=== PATIENT | female | born 1965 | race American Indian/Alaskan Native ===

== ENCOUNTER 2017-03-01 08:56 | Day surgery (SDC) | payer BC ==
[~2017-03-01 08:56] MED LIST: ANCEF/STERILE WATER 2 GM/20 ML IV NR; MARCAINE 0.25% INFILTRATI ONE; NACL 0.9% IR ONE; XYLOCAINE 1% 20 mL INFILTRATI ONE
[2017-03-01] MEDS ORDERED: VERSED IV NR (09:00)
[2017-03-01] MEDS ORDERED: PEPCID PO NR (09:00)
[2017-03-01] MEDS ORDERED: NACL 0.9% 1000 ML 1,000 ML IV SCH (09:00)
[2017-03-01] MEDS ORDERED: XYLOCAINE MPF 2% ONE (09:04)
[2017-03-01] MEDS ORDERED: DIPRIVAN 10 MG/ML IV ONE (09:04)
[2017-03-01] MEDS ORDERED: SUBLIMAZE ONE ×2 (09:04→11:29)
[2017-03-01] MEDS ORDERED: XYLOCAINE 1% 20 mL ONE (09:20)
[2017-03-01] MEDS ORDERED: MARCAINE 0.25% INFILTRATI ONE (09:20)
--- NOTE | 2017-03-01 09:47 | Anesthesia Consultation ---
Anesthesia Consult and Med Hx Date of service: 03/01/17 - Airway Anesthetic Teeth Evaluation: Good ROM Head & Neck: Adequate Mental/Hyoid Distance: Adequate Mallampati Class: Class I Intubation Access Assessment: Good - Pulmonary Exam CTA: Yes - Cardiac Exam Cardiac Exam: RRR - Pre-Operative Health Status ASA Pre-Surgery Classification: ASA3 Proposed Anesthetic Plan: General - Pulmonary Hx Smoking: No Hx Asthma: Yes (uses inhaler 2 puffs 2x per day, last used last night) COPD: No Hx Sleep Apnea: Yes (DX SLEEP APNEA WITH CPAP USE.) - Cardiovascular System Hx Hypertension: Yes ( DR. OCHOA - PCP) Hx Coronary Artery Disease: No Hx Heart Attack/AMI: No Hx Angina: No - Central Nervous System Hx Seizures: No CVA: No Hx Psychiatric Problems: No - Gastrointestinal Hx Gastroesophageal Reflux Disease: Yes (severe took her dexilent) - Endocrine Hx Renal Disease: No Hx Liver Disease: No Hx Non-Insulin Dependent Diabetes: Yes - Hematic Hx Anemia: No - Other Systems Hx Alcohol Use: No Hx Substance Use: No Hx Cancer: No Hx Obesity: Yes (BMI >50)
--- NOTE | 2017-03-01 09:48 | Anesthesia Day of Surgery ---
Anesthesia Day of Surgery - Day of Surgery Patient Examined: Yes Patient H&P Reviewed: Yes Patient is NPO: Yes Beta Blockers: Yes
[2017-03-01] MEDS ORDERED: DECADRON ONE (10:46)
[2017-03-01] MEDS ORDERED: ZOFRAN ONE (10:46)
--- NOTE | 2017-03-01 12:11 | Short Stay Summary ---
Short Stay Documentation Date of service: 03/01/17 - History H&P: obtained from office - Allergies and Medications Current Medications: Allergies blueberry Adverse Reaction (Verified 07/17/14 13:15) HIVES AND ITCHING tramadol HCl [From Ultram] Adverse Reaction (Verified 07/17/14 13:15) HIVES AND ITCHING blackberry Adverse Reaction (Uncoded 07/17/14 13:15) HIVES AND ITCHING Home Medications Medication Instructions Recorded Confirmed Last Taken Type Budesoni/Formotero 160-4.5(Nf) 2 puff IH BID 07/17/14 02/23/17 02/04/15 07:10 History [Symbicort 160-4.5 (Nf)] Metoprolol Xl [Metoprolol 50 mg PO QDAY 07/17/14 02/23/17 02/04/15 07:10 History SUCCINATE ER TAB] clonazePAM 2 mg PO QHS 07/17/14 02/23/17 02/03/15 23:00 History Losartan/Hydrochlorothiazide 1 each PO QDAY 12/13/16 02/23/17 Unknown History [Losartan-Hctz 50-12.5 mg Tab] Omeprazole Magnesium [PriLOSEC Otc] 20 mg PO QDAY PRN 12/13/16 02/23/17 Unknown History glipiZIDE [Glucotrol] 10 mg PO BID 12/13/16 02/23/17 Unknown History Meloxicam [Mobic] 15 mg PO DAILY 02/23/17 02/23/17 02/23/17 History metFORMIN XR [Glucophage XR] 500 mg PO QDAY 02/23/17 02/23/17 Unknown History Ibuprofen [Motrin 800 MG tab] 800 mg PO Q8HR PRN #30 tablet 03/01/17 Unknown Rx Active Medications Cefazolin Sodium (Ancef/Sterile Water 2 Gm/20 Ml) 2 gm IV PREOP NR Stop: 03/01/17 23:59 Famotidine (Pepcid) 20 mg PO PREOP NR Stop: 03/01/17 21:00 Last Admin: 03/01/17 10:07 Dose: 20 mg Sodium Chloride (Nacl 0.9% 1000 Ml) 1,000 mls @ 75 mls/hr IV DIRECT ERAN Last Admin: 03/01/17 10:11 Dose: 75 mls/hr Midazolam HCl (Versed) 2 mg IV PREOP NR Stop: 03/01/17 23:59 Last Admin: 03/01/17 10:31 Dose: 2 mg - Brief post op/procedure progress note Date of procedure: 03/01/17 Pre-op diagnosis: Right bloody nipple discharge Post-op diagnosis: same Procedure: Right nipple terminal duct excisional biopsy Anesthesia: GETA Findings: Bloody nipple discharge with terminal duct excisional biopsy Surgeon: HUGO STONE Estimated blood loss: minimal Pathology: list (right nipple terminal duct excisional biopsy) Specimen disposition: to lab Condition: stable - Disposition Condition at discharge: Good Disposition: DC-01 TO HOME OR SELFCARE Short Stay Discharge Plan Activity: other (no heavy lifting) Diet: regular Wound: other (keep incision clean and dry; may shower in 24 hours; no baths, pools or lakes; do not rub or scrub incision) Follow up with: DAMIAN OCHOA MD [Primary Care Provider] - 7 Days HUGO STONE MD [Staff Physician] - 7 Days Prescriptions: Ibuprofen [Motrin 800 MG tab] 800 mg PO Q8HR PRN #30 tablet PRN Reason: Pain
--- NOTE | 2017-03-01 12:19 | Operative Report ---
Operative Report Operative Report: Date of Service: March 01, 2017 Preoperative diagnosis: Right bloody nipple discharge Postoperative diagnosis: Same Procedure: Right nipple terminal duct excisional biopsy Surgeon: Marcie Granda M.D. Anesthesia: Gen. Findings: Right nipple bloody nipple discharge noted at the 10-11 o'clock position of the right nipple terminal duct excisional biopsy performed Complications: None Estimated blood loss: Minimal Disposition: PACU in good condition Indications for operative procedure: This is a 51-year-old -[place] lady with right nipple spontaneous bloody nipple discharge. Ductogram was performed with findings of obstruction 2 cm posterior to the nipple and recommendations for terminal duct excisional biopsy. Patient wished to proceed with the above procedure. Procedure in detail: The patient was taken to the operating room and was laid supine. Gen. anesthesia was administered. The right breast was prepped and draped in the normal as operative fashion. Timeout was performed. Bloody discharge was noted upon light palpation at the 10-11 o'clock position of the nipple. A lacrimal probe was inserted into bleeding duct and a lateral periareolar incision was made with a 15 blade knife with dissection taken down to the subcutaneous tissues. First began with dissection of the breast tissue posterior to the nipple taken down posteriorly to 4 cm. Lacrimal probe was identified with the terminal duct identified as well. Tonsil was then used to encircle the breast tissue superior and inferiorly with dissection taken down posteriorly by 4 cm. The area of concern encompassing the concerning bleeding terminal duct was excised using the bovie cautery and terminal duct marked. Specimen was then sent to pathology. Hemostasis was obtained. Breast cavity was anesthetized with 1% lidocaine mixed with quarter percent Marcaine. The subcutaneous tissues were approximated and closed using interrupted 3-0 Vicryl and the skin brought together and closed using a 4-0 Monocryl and skin affix. She tolerated surgery very well and was awakened from anesthesia without any complications and transported to PACU in good condition.
[2017-03-01 13:08] VITALS: BP 138/82
== END 2017-03-01 13:37 | disposition home or self-care (01) ==
LOC: OR 08:56
PROVIDERS: ATTEND Surgery
DX: N64.52 Nipple discharge (principal); E11.9 Type 2 diabetes mellitus without complications; E78.00 Pure hypercholesterolemia, unspecified; J45.909 Unspecified asthma, uncomplicated; G47.33 Obstructive sleep apnea (adult) (pediatric); I10 Essential (primary) hypertension; K21.9 Gastro-esophageal reflux disease without esophagitis; E66.9 Obesity, unspecified; Z68.43 Body mass index [BMI] 50.0-59.9, adult; Z91.018 Allergy to other foods; Z88.5 Allergy status to narcotic agent; Z79.899 Other long term (current) drug therapy; Z79.84 Long term (current) use of oral hypoglycemic drugs; Z98.890 Other specified postprocedural states; Z80.3 Family history of malignant neoplasm of breast
CPT/HCPCS: 19120; 36415; 81025; 82962; 84132; 88307; 88341; 88342; J0690; J1100; J2250; J2405; J2704; J3010; J7030

== ENCOUNTER 2017-06-27 08:50 | Outpatient (CLI) | payer BC ==
--- NOTE | 2017-06-27 10:12 | Mammography Report ---
RIGHT DIGITAL DIAGNOSTIC MAMMOGRAM with CAD: 06/27/17 08:50:00 CLINICAL: Followup after surgical excision of a benign retroareolar intraductal papilloma 03/02/17. COMPARISON:10/21/16 [facility] FINDINGS: The breast is heterogeneously dense, which may obscure small masses. Mild periareolar skin thickening and mild retroareolar surgical scar. No mass, architectural distortion or suspicious calcifications. IMPRESSION: Negative Mammogram. BI-RADS CATEGORY: 2 - - Benign RECOMMENDATION: Return to routine mammographic screening. ACR BI-RADS MAMMOGRAPHIC CODES: 0 = Needs additional imaging evaluation; 1 = Negative; 2 = Benign; 3 = Probably benign; 4 = Suspicious; 5 = Malignant; 6 = Known biopsy-proven malignancy COMMENT: 1. Dense breast tissue, i.e., adenosis, fibrocystic changes, etc., may obscure an underlying neoplasm. 2. Approximately 10% of cancers are not detected with mammography. 3. A negative mammography report should not delay biopsy if a clinically suspicious mass is present. COMMENT: Patient follow-up letters are generated via our [employer] application.
== END 2017-06-27 08:51 | disposition home or self-care (01) ==
LOC: SPVWC 08:50
PROVIDERS: ATTEND Surgery
DX: N60.81 Other benign mammary dysplasias of right breast (principal); N64.52 Nipple discharge
CPT/HCPCS: G0206-RT

== ENCOUNTER 2017-11-07 13:25 | Outpatient (CLI) | payer BC ==
--- NOTE | 2017-11-07 14:17 | Mammography Report ---
BILATERAL DIGITAL SCREENING MAMMOGRAM with CAD : 11/07/17 13:25:00 CLINICAL: Routine screening.Status post excision of a benign right intraductal papilloma. COMPARISON:06/27/17 right mammogram and 10/21/16 lateral mammogram. FINDINGS: The breasts are heterogeneously dense, which may obscure small masses.A few bilateral calcifications with benign morphology. No mass, architectural distortion or suspicious calcifications. IMPRESSION: No mammographic evidence of malignancy. BI-RADS CATEGORY: 2 -- Benign RECOMMENDATION: Routine mammographic screening in one year. COMMENT: Patient follow-up letters are generated by our [employer] application.
== END 2017-11-07 13:26 | disposition home or self-care (01) ==
LOC: SPVWC 13:25
PROVIDERS: ATTEND Surgery
DX: Z12.31 Encounter for screening mammogram for malignant neoplasm of breast (principal); Z98.890 Other specified postprocedural states
CPT/HCPCS: 77067

== ENCOUNTER → 2018-03-13 | Outpatient (CLI) | payer BC ==
--- NOTE | 2018-03-13 15:22 | Ultrasound Report ---
RIGHT DIGITAL DIAGNOSTIC MAMMOGRAM with CAD and RIGHT BREAST ULTRASOUND: 03/13/18 10:16:00 CLINICAL: Palpable masses of the upper-inner quadrant pain history of intraductal papilloma with atypical ductal hyperplasia. A right surgical excision was performed on 02/05/15. A breast MRI was attempted but could not be performed because of body habitus. COMPARISON:11/07/17 bilateral mammogram, 06/27/17 right mammogram and 10/21/16 bilateral mammogram. FINDINGS: The breast is heterogeneously dense with a stable fibroglandular pattern. An oval circumscribed asymmetry measures 1.6 cm on the lateral view and correlates with a palpable marker that is closest to the nipple at 1 o'clock. 2 additional palpable markers at 1 o'clock with no definite mammographic correlates. No architectural distortion or suspicious calcifications. Ultrasound of the upper inner right breast was performed and demonstrated numerous solid irregular hypoechoic masses. At least five measurable masses extend from 3 cm from the nipple to 14 cm from the nipple. The largest is at 11 cm from the nipple and measures 2.6 x 2.2 x 1.3 cm. The smallest is at 14 cm from the nipple and measures 1.1 x 1.0 x 0.5 cm. In addition to these masses, there are numerous branching dilated hypoechoic ducts in the same orientation as the solid masses. IMPRESSION: Numerous suspicious breast masses at 1 o'clock extending from 3 cm from the nipple to 14 cm from the nipple. Recommend ultrasound-guided needle biopsy of the largest and most suspicious mass. BI-RADS CATEGORY: 4--Suspicious ACR BI-RADS MAMMOGRAPHIC CODES: 0 = Needs additional imaging evaluation; 1 = Negative; 2 = Benign; 3 = Probably benign; 4 = Suspicious; 5 = Malignant; 6 = Known biopsy-proven malignancy COMMENT: 1. Dense breast tissue, i.e., adenosis, fibrocystic changes, etc., may obscure an underlying neoplasm. 2. Approximately 10% of cancers are not detected with mammography. 3. A negative mammography report should not delay biopsy if a clinically suspicious mass is present. COMMENT: Patient follow-up letters are generated by our [email or web address] application.
== END | disposition home or self-care (01) ==
LOC: SPVWC 10:16
PROVIDERS: ATTEND Surgery
DX: I10 Essential (primary) hypertension (principal); E78.00 Pure hypercholesterolemia, unspecified; K21.9 Gastro-esophageal reflux disease without esophagitis; E66.9 Obesity, unspecified; E11.9 Type 2 diabetes mellitus without complications; J45.909 Unspecified asthma, uncomplicated; Z91.018 Allergy to other foods; Z88.6 Allergy status to analgesic agent; R92.8 Other abnormal and inconclusive findings on diagnostic imaging of breast

== ENCOUNTER 2018-03-16 15:11 | Outpatient (CLI) | payer BC, OTHER | END 2018-03-16 15:12 | disposition home or self-care (01) | LOC: LABHHL 15:11 | PROVIDERS: ATTEND Surgery | DX: N63.11 Unspecified lump in the right breast, upper outer quadrant (principal); I10 Essential (primary) hypertension; E78.00 Pure hypercholesterolemia, unspecified; E66.9 Obesity, unspecified; J45.909 Unspecified asthma, uncomplicated; E11.9 Type 2 diabetes mellitus without complications; K21.9 Gastro-esophageal reflux disease without esophagitis; Z91.018 Allergy to other foods; Z88.6 Allergy status to analgesic agent | CPT/HCPCS: 88305; 88341; 88342; 88361 ==

== ENCOUNTER 2018-03-29 08:05 | Outpatient (CLI) | payer BC ==
--- NOTE | 2018-03-29 14:04 | PET Report ---
PET/CT:03/29/18 08:05:00 CLINICAL: Newly diagnosed right breast cancer. RADIOPHARMACEUTICAL: 12.486mCi F18-FDG. COMPARISON: Right digital diagnostic mammogram and right breast ultrasound 03/13/18 TECHNIQUE- Following intravenous injection of F-18 FDG and an approximately 60 minute uptake period, CT and PET images from the mid skull to the upper thighs were acquired with the patient in the fasted state. No contrast was administered. The CT protocol used for this PET CT study is designed for attenuation correction and anatomic localization of abnormalities. This die designer apprentice CT is not desired to produce and cannot replace, ygvgs-zq-mdd-art diagnostic CT scans with specific imaging protocols for different body parts and indications. Plasma glucose at the time of this test: 111g/dl. The standardized uptake values (SUV) are normalized to patient body weight and indicate the highest activity concentration (SUV max) in a given disease site. FINDINGS: Brain--Physiologic FDG uptake in the visualized regions of the brain. Neck--Physiologic FDG uptake in mucosal structures. No mass or lymphadenopathy. Chest--Physiologic FDG uptake in mediastinal blood pool and myocardium. Multifocal FDG uptake in the upper inner right breast with SUV 5.2 correlates with previously described masses identified by ultrasound. The abnormal FDG uptake spans at least 6 cm. Discrete masses are not identified on the CT portion of the exam. Lungs--No abnormal uptake. No pulmonary nodule or mass. Pleura/pericardium--No abnormal uptake. Thoracic nodes--No abnormal uptake in no lymphadenopathy. Hepatobiliary--No abnormal uptake. Liver background SUV mean, as a reference for comparing FDG studies, is 4.6 . No liver mass. Spleen--No abnormal uptake. Pancreas--No abnormal uptake. Adrenal Glands--No abnormal uptake. Kidneys/Ureters/Bladder--No abnormal uptake. Abdominopelvic Nodes--No abnormal uptake. Bowel/Peritoneum/Mesentery--No abnormal uptake. Pelvic organs--No abnormal uptake. Bones/Soft Tissues--No abnormal uptake and no suspicious bone lesion. IMPRESSION- 1. FDG avid breast cancer involving the upper inner quadrant of the right breast. 2. No evidence of mary jo, pulmonary, hepatic or skeletal metastasis..
== END 2018-03-29 08:06 | disposition home or self-care (01) ==
LOC: PET 08:05
PROVIDERS: ATTEND Surgery
DX: C50.411 Malignant neoplasm of upper-outer quadrant of right female breast (principal); I10 Essential (primary) hypertension; E11.9 Type 2 diabetes mellitus without complications; E78.00 Pure hypercholesterolemia, unspecified; K21.9 Gastro-esophageal reflux disease without esophagitis; J45.909 Unspecified asthma, uncomplicated; E66.9 Obesity, unspecified
CPT/HCPCS: 78815; A9552

== ENCOUNTER 2018-08-21 10:43 | Day surgery (SDC) | payer BC ==
[2018-08-21] MEDS ORDERED: NACL 0.9% 1000 ML 1,000 ML IV SCH (11:00)
[2018-08-21] MEDS ORDERED: DILAUDID IV PRN (11:56)
[2018-08-21] MEDS ORDERED: TRANSDERM-SCOP TD NR (12:00)
[2018-08-21] MEDS ORDERED: VERSED IV NR (12:00)
--- NOTE | 2018-08-21 12:00 | Anesthesia Day of Surgery ---
Anesthesia Day of Surgery - Day of Surgery Patient Examined: Yes Patient H&P Reviewed: Yes Patient is NPO: Yes Beta Blockers: Yes
--- NOTE | 2018-08-21 12:00 | Anesthesia Consultation ---
Anesthesia Consult and Med Hx - Airway Anesthetic Teeth Evaluation: Good ROM Head & Neck: Adequate Mental/Hyoid Distance: Adequate Mallampati Class: Class III Intubation Access Assessment: Possibly Difficult - Pulmonary Exam CTA: Yes - Cardiac Exam Cardiac Exam: RRR - Pre-Operative Health Status ASA Pre-Surgery Classification: ASA3 Proposed Anesthetic Plan: General - Pulmonary Hx Smoking: No Hx Asthma: Yes (DAILY INHALERS) Hx Respiratory Symptoms: No Home Oxygen Therapy: No Hx Sleep Apnea: Yes (DX SLEEP APNEA WITH CPAP USE.) - Cardiovascular System Hx Hypertension: Yes (took metoprolol today. Last dose losartan 08/20/18) Hx Heart Attack/AMI: No Hx Percutaneous Transluminal Coronary Angioplasty (PTCA): No - Central Nervous System Hx Seizures: No CVA: No - Gastrointestinal Hx Gastroesophageal Reflux Disease: Yes (well controlled; asymptomatic today) - Endocrine Hx Renal Disease: No Hx Liver Disease: No Hx Non-Insulin Dependent Diabetes: Yes Hx Thyroid Disease: No - Other Systems Hx Alcohol Use: No Hx Substance Use: No Hx Cancer: Yes Hx Obesity: Yes - Additional Comments Anesthesia Medical History Comments: Hx PONV which did not occur with scop patch last anesthetic.
[2018-08-21] MEDS ORDERED: XYLOCAINE 1% 20 mL ONE (12:14)
[2018-08-21] MEDS ORDERED: HEPARIN 10,000 UNITS/10 ML ONE (12:14)
[2018-08-21] MEDS ORDERED: MARCAINE-EPI 0.25%-1:200,000 INFILTRATI ONE (12:14)
[2018-08-21] MEDS ORDERED: NACL 0.9% 100 ML ONE (12:15)
[2018-08-21] MEDS ORDERED: MARCAINE 0.25% INFILTRATI ONE ×2 (12:16→12:45)
[2018-08-21] MEDS ORDERED: ANCEF/STERILE WATER 2 GM/20 ML IV NR (12:20)
[2018-08-21] MEDS ORDERED: ceFAZolin 2 GM in NACL 0.9% 100 ML IV ONE (12:20)
[2018-08-21] MEDS ORDERED: ZOFRAN ONE (12:28)
[2018-08-21] MEDS ORDERED: SUBLIMAZE ONE ×2 (12:28→13:15)
[2018-08-21] MEDS ORDERED: DIPRIVAN 10 MG/ML IV ONE ×2 (12:28→12:32)
[2018-08-21] MEDS ORDERED: DECADRON ONE (12:28)
[2018-08-21] MEDS ORDERED: XYLOCAINE MPF 2% ONE (12:29)
[2018-08-21] MEDS ORDERED: NACL 0.9% IR ONE (12:45)
[2018-08-21] MEDS ORDERED: HEPARIN 10,000 UNITS/10 ML IV ONE ×2 (12:45)
[2018-08-21] MEDS ORDERED: XYLOCAINE 1% MPF 5 mL INFILTRATI ONE (12:45)
--- NOTE | 2018-08-21 14:02 | Short Stay Summary ---
Short Stay Documentation Date of service: 08/21/18 - History Principal diagnosis: right breast cancer H&P: obtained from office - Allergies and Medications Current Medications: Allergies blueberry Adverse Reaction (Verified 06/06/18 11:13) HIVES AND ITCHING [facility] Adverse Reaction (Verified 06/06/18 11:13) HIVES AND ITCHING blackberry Adverse Reaction (Uncoded 05/02/18 16:12) HIVES AND ITCHING Home Medications Medication Instructions Recorded Confirmed Last Taken Type Budesoni/Formotero 160-4.5(Nf) 2 puff IH BID 07/17/14 08/21/18 08/21/18 02:00 History [Symbicort 160-4.5 (Nf)] Ibuprofen [Motrin 800 MG tab] 800 mg PO Q8HR PRN #30 tablet 03/01/17 08/21/18 08/14/18 Rx Cholecalciferol (Vitamin D3) 50,000 units PO QWEEK 05/02/18 08/21/18 08/19/18 History [Vitamin D3] Empagliflozin [Jardiance] 25 mg PO DAILY 05/02/18 08/21/18 08/20/18 History Ipratropium/Albuter (Nf) 2 puff IH QID 05/02/18 08/21/18 07/04/18 History [Combivent (Nf)] Levocetirizine Dihydrochloride 5 mg PO DAILY PRN 05/02/18 08/21/18 08/06/18 History [Xyzal] Losartan Potassium 50 mg PO DAILY 05/02/18 08/21/18 08/20/18 09:00 History Melatonin/Pyridoxine [Melatonin 5 5 mg PO QHS 05/02/18 08/21/18 08/20/18 21:00 History mg Tablet] Metoprolol Succinate [Toprol Xl] 150 mg PO DAILY 05/02/18 08/21/18 08/21/18 02:00 History Omeprazole 40 mg PO DAILY 05/02/18 08/21/18 08/21/18 02:00 History diphenhydrAMINE [Benadryl CAP] 25 mg PO Q6HR PRN 05/02/18 08/21/18 06/05/18 History glipiZIDE [Glipizide] 5 mg PO BID 05/02/18 08/21/18 08/20/18 History predniSONE [Deltasone] 20 mg PO DAILY PRN 05/02/18 08/21/18 07/03/18 History HYDROcodone/APAP 7.5-325 [Moran 1 tab PO Q4HR PRN 06/07/18 08/14/18 06/06/18 22:00 History 7.5-325 mg TAB] Methocarbamol [Robaxin TAB] 1 tab PO Q6HR PRN 06/07/18 08/21/18 08/07/18 History Active Medications Cefazolin Sodium (Ancef/Sterile Water 2 Gm/20 Ml) 2 gm IV PREOP NR Stop: 08/21/18 23:59 Hydromorphone HCl (Dilaudid) 0.5 mg IV Q10MIN PRN PRN Reason: Pain , Severe (7-10) Stop: 08/21/18 23:00 Sodium Chloride (Nacl 0.9% 1000 Ml) 1,000 mls @ 75 mls/hr IV DIRECT ERAN Last Admin: 08/21/18 12:27 Dose: 75 mls/hr Documented by: Midazolam HCl (Versed) 2 mg IV PREOP NR Stop: 08/21/18 23:59 Last Admin: 08/21/18 12:26 Dose: 2 mg Documented by: Scopolamine (Transderm-Scop) 1 each TD PREOP NR Stop: 08/21/18 23:00 Last Admin: 08/21/18 12:26 Dose: 1 each Documented by: - Brief post op/procedure progress note Date of procedure: 08/21/18 Pre-op diagnosis: right breast cancer Post-op diagnosis: same Procedure: insertion of left internal jugular port with ultrasound guidance, fluoroscopy Anesthesia: GETA, local Findings: good placement of port on post op CXR without PTX Surgeon: JAKE WARE Estimated blood loss: minimal Pathology: none Condition: stable - Hospital course Hospital course: Patient was observed in PACU and discharged to home in stable condition when criteria was met. - Disposition Condition at discharge: Good Short Stay Discharge Plan Activity: no restrictions Diet: regular Wound: open to air Additional Instructions: see printed discharge instructions Follow up with: LALI OCHOA MD [Primary Care Provider] - 7 Days JAKE WARE DO [Staff Physician] - 14 Days
[2018-08-21] MEDS ORDERED: PERCOCET 5/325 PO PRN (14:40)
--- NOTE | 2018-08-21 14:41 | Fluoroscopy Report ---
AP CHEST: HISTORY: Breast cancer, Lggbnw-w-Hshz insertion A left IJ Pxsusr-p-Yyvy has been inserted which terminates near the cavoatrial junction. AP view of the chest demonstrates a normal mediastinal and cardiac contour with clear lungs and normal bony and soft tissue structures. Right breast tissue ct technician is noted. IMPRESSION: Left IJ Lplybl-v-Vqmy placement as described. No pneumothorax.
[2018-08-21 15:29] VITALS: BP 125/61
--- NOTE | 2018-08-21 15:56 | Post Anesthesia Evaluation ---
- Post Anesthesia Evaluation Patient Participated: Yes Airway Patent: Yes Stable Respiratory Function: Yes Nausea/Vomiting: No Temp > 96.8F: Yes Pain Manageable: Yes Adequeate Hydration: Yes Anesthesia Complications: No
--- NOTE | 2018-08-21 16:43 | Operative Report ---
Operative Report Operative Report: Date of procedure: 08/21/18 Pre-op diagnosis: right breast cancer Post-op diagnosis: same Procedure: insertion of left internal jugular port with ultrasound guidance, fluoroscopy Anesthesia: GETA, local Findings: good placement of port on post op CXR without PTX Surgeon: JAKE WARE Estimated blood loss: minimal Pathology: none Condition: stable Procedure in detail: The patient was identified in the preoperative area, taken back to operating room, placed on operating table in supine position. After anesthesia was induced both arms were tucked and upper chest and neck were prepped and draped in usual sterile fashion. A timeout was performed. The was placed in Trendelenburg position. Local anesthetic was infiltrated into the skin at the intended puncture site. The left subclavian vein was visualized on ultrasound and one attempt was made at access. The vein was particularly deep due to the patient's body habitus and could not be accessed safely. The left internal jugular vein was identified on ultrasound and was accessed on the first stick. There was return of dark red, nonpulsatile blood. A wire was threaded under fluoroscopy however it could not be guided into the right atrium. The wire was removed. Another attempt was made to access the left internal jugular vein using ultrasound guidance. The vein was accessed on the first stick. There was return of dark red, nonpulsatile blood. A glidewire was threaded under fluoroscopy without resistance and positioning confirmed. The needle was then removed. Using a 15 blade, an incision was made in the left upper chest and dissection carried down through the skin and subcutaneous tissue using Bovie electrocautery. Hemostasis was achieved along the way. A pocket for the port was then created bluntly and with electrocautery. The catheter was flushed and tunneled from the pocket to the wire. A breakaway catheter/dilator sheath then inserted over the wire under fluoroscopy, and the wire and dilator removed. The catheter was then inserted through the breakaway catheter which was then remov ed. The catheter sat flush under the skin. Using continuous fluoroscopy, the catheter was pulled back until the tip was visualized in the right atrium. The catheter was then cut to size and the port attached in the usual fashion. The port was then sutured into place to the pre-pectoral fascia using 2-0 Vicryl interrupted sutures. The wound was irrigated and hemostasis ensured. The port was tested with heparinized saline and there was return of blood and it flushed easily. The port was then instilled with 3000 units of heparin. The deep dermal layer was then closed with interrupted 3-0 Vicryl stitches. The skin incisions were closed with 4-0 Monocryl subcuticular stitches and skin glue. Intraoperative chest x-ray did show good positioning of the port, without evidence of pneumothorax. At the end of the case, all sponge, instrument, sharp counts were correct 2. The patient was awoken from anesthesia and taken to PACU in stable condition.
== END 2018-08-21 16:00 | disposition home or self-care (01) ==
LOC: OR 10:43
PROVIDERS: ATTEND Surgery
DX: C50.912 Malignant neoplasm of unspecified site of left female breast (principal); E78.00 Pure hypercholesterolemia, unspecified; I10 Essential (primary) hypertension; G47.30 Sleep apnea, unspecified; K21.9 Gastro-esophageal reflux disease without esophagitis; M17.0 Bilateral primary osteoarthritis of knee; E11.9 Type 2 diabetes mellitus without complications; J45.909 Unspecified asthma, uncomplicated; E66.9 Obesity, unspecified; Z68.42 Body mass index [BMI] 45.0-49.9, adult; Z90.11 Acquired absence of right breast and nipple; Z98.890 Other specified postprocedural states; Z80.3 Family history of malignant neoplasm of breast; Z98.891 History of uterine scar from previous surgery; Z91.018 Allergy to other foods; Z79.899 Other long term (current) drug therapy; Z88.8 Allergy status to other drugs, medicaments and biological substances
CPT/HCPCS: 36561; 77001; 81025; 82962; C1769; C1788; J1100; J1644; J2250; J2405; J2704; J3010; J7030; J0690

== ENCOUNTER 2018-09-11 07:04 | Outpatient (CLI) | payer BC ==
[2018-09-11] MEDS ORDERED: FLUSH HEPARIN IV ONE (08:52)
--- NOTE | 2018-09-11 09:37 | Fluoroscopy Report ---
FLUOROSCOPY PORTAGRAM LEFT History: Nonfunctioning-clotted port, malignant neoplasm of left breast. Findings: 27 fluoroscopic images were obtained during injection of approximately 8 cc of IV contrast through the left Dhzxdf-m-Vtra. There is no evidence for fracture or extravasation of contrast agent. Of note, the distal tip of the Dywazc-u-Prwt is pointing superiorly in the mid SVC. When the Ozatdd-p-Dqdr was placed on 08/21/18, the distal tip of the Kuivlk-w-Evtl pointed inferiorly to terminate near the cavoatrial junction. Impression: The left Ytzoit-o-Llpe is intact. No evidence for fracture or extravasation. The position of the tubing of the Fifauw-z-Zked has changed slightly since it was placed on 08/28/18 as described. The clinical significance of this is unclear.
== END 2018-09-11 07:05 | disposition home or self-care (01) ==
LOC: FLUORO 07:04
PROVIDERS: ATTEND Surgery
DX: C50.412 Malignant neoplasm of upper-outer quadrant of left female breast (principal); E78.00 Pure hypercholesterolemia, unspecified; I10 Essential (primary) hypertension; K21.9 Gastro-esophageal reflux disease without esophagitis; M17.0 Bilateral primary osteoarthritis of knee; E11.9 Type 2 diabetes mellitus without complications; J45.909 Unspecified asthma, uncomplicated; G47.30 Sleep apnea, unspecified; E66.9 Obesity, unspecified; Z68.42 Body mass index [BMI] 45.0-49.9, adult; Z98.890 Other specified postprocedural states; Z80.3 Family history of malignant neoplasm of breast; Z79.899 Other long term (current) drug therapy; Z88.8 Allergy status to other drugs, medicaments and biological substances; Z91.018 Allergy to other foods; Z90.11 Acquired absence of right breast and nipple
CPT/HCPCS: 36598; J1642; Q9967

== ENCOUNTER 2018-09-12 05:59 | Day surgery (SDC) | payer BC ==
[~2018-09-12 05:59] MED LIST changes: -ANCEF/STERILE WATER 2 GM/20 ML IV NR; +LACTATED RINGERS 1,000 ML IV SCH; -MARCAINE 0.25% INFILTRATI ONE; -NACL 0.9% IR ONE; -XYLOCAINE 1% 20 mL INFILTRATI ONE
[2018-09-12] MEDS ORDERED: ANCEF/STERILE WATER 2 GM/20 ML 2 GM/20 ML SYRINGE IV NR (06:00)
[2018-09-12] MEDS ORDERED: VERSED IV NR (06:00)
[2018-09-12] MEDS ORDERED: TRANSDERM-SCOP TD NR (06:00)
[2018-09-12] MEDS ORDERED: ceFAZolin 2 GM in NACL 0.9% 100 ML IV ONE (07:00)
[2018-09-12] MEDS ORDERED: DIPRIVAN 10 MG/ML IV ONE (07:45)
[2018-09-12] MEDS ORDERED: XYLOCAINE MPF 2% ONE (07:45)
[2018-09-12] MEDS ORDERED: SUBLIMAZE ONE (07:45)
[2018-09-12] MEDS ORDERED: XYLOCAINE 1% 20 mL ONE (07:53)
[2018-09-12] MEDS ORDERED: MARCAINE 0.25% INFILTRATI ONE ×3 (07:54→08:31)
[2018-09-12] MEDS ORDERED: HEPARIN 10,000 UNITS/10 ML ONE (07:54)
[2018-09-12] MEDS ORDERED: ZOFRAN ONE (08:16)
[2018-09-12] MEDS ORDERED: HEPARIN IR ONE (08:31)
[2018-09-12] MEDS ORDERED: NACL 0.9% IR ONE ×2 (08:31)
[2018-09-12] MEDS ORDERED: SUBLIMAZE IV PRN (08:44)
--- NOTE | 2018-09-12 08:44 | Anesthesia Day of Surgery ---
Anesthesia Day of Surgery - Day of Surgery Patient Examined: Yes Patient H&P Reviewed: Yes Patient is NPO: Yes
--- NOTE | 2018-09-12 08:44 | Anesthesia Consultation ---
Anesthesia Consult and Med Hx Date of service: 09/12/18 - Airway Anesthetic Teeth Evaluation: Good ROM Head & Neck: Adequate Mental/Hyoid Distance: Adequate Mallampati Class: Class II Intubation Access Assessment: Probably Good - Pulmonary Exam CTA: Yes - Cardiac Exam Cardiac Exam: RRR - Pre-Operative Health Status ASA Pre-Surgery Classification: ASA3 Proposed Anesthetic Plan: General - Pulmonary Hx Smoking: No Hx Asthma: Yes (no recent inhaler use) Hx Respiratory Symptoms: No Hx Sleep Apnea: Yes (compliant with CPAP) - Cardiovascular System Hx Hypertension: Yes Hx Heart Attack/AMI: No Hx Percutaneous Transluminal Coronary Angioplasty (PTCA): No - Central Nervous System Hx Seizures: No CVA: No Hx Psychiatric Problems: No - Gastrointestinal Hx Gastroesophageal Reflux Disease: Yes (well controlled; asymptomatic today) - Endocrine Hx Renal Disease: No Hx Liver Disease: No Hx Non-Insulin Dependent Diabetes: Yes Hx Thyroid Disease: No - Other Systems Hx Alcohol Use: No Hx Substance Use: No Hx Cancer: Yes (has not started chemotherapy) Hx Obesity: Yes - Additional Comments Anesthesia Medical History Comments: Hx PONV however did not occur after last anesthetic with scop patch.
[2018-09-12] MEDS ORDERED: HEPARIN 10,000 UNITS/10 ML IV ONE ×2 (09:05)
[2018-09-12] MEDS ORDERED: NACL P/F VIAL (10 ML) 10 ML ONE ×2 (09:23→09:38)
[2018-09-12] MEDS ORDERED: DECADRON ONE (10:06)
[2018-09-12 10:49] VITALS: BP 146/61
--- NOTE | 2018-09-12 10:54 | Fluoroscopy Report ---
FLUOROSCOPY CENTRAL VENOUS DEVICE EXCHANGE History: Malpositioned Whpdps-s-Xldy. Findings: Single AP view of the chest is presented and compared to 08/21/18. The left Jqspcb-m-Fdky has apparently been exchanged and is in good position with its distal tip terminating in the right atrium. Heart size is within normal limits. The lungs are clear. No pneumothorax. Impression: Left Udexmq-v-Yzip exchange. Unremarkable AP chest.
--- NOTE | 2018-09-12 20:16 | Post Anesthesia Evaluation ---
- Post Anesthesia Evaluation Patient Participated: Yes Airway Patent: Yes Stable Respiratory Function: Yes Nausea/Vomiting: No Temp > 96.8F: Yes Pain Manageable: Yes Adequeate Hydration: Yes Anesthesia Complications: No Block Receding Appropriately: Not Applicable Patient on Ventilator: No
--- NOTE | 2018-09-13 10:27 | Short Stay Summary ---
Short Stay Documentation Date of service: 09/12/18 - History Principal diagnosis: malpositioned port H&P: obtained from office - Allergies and Medications Current Medications: Allergies blueberry Adverse Reaction (Verified 09/11/18 16:12) HIVES AND ITCHING tramadol HCl [From Ultram] Adverse Reaction (Verified 09/11/18 16:12) HIVES AND ITCHING blackberry Adverse Reaction (Uncoded 09/11/18 16:12) HIVES AND ITCHING Home Medications Medication Instructions Recorded Confirmed Last Taken Type Budesoni/Formotero 160-4.5(Nf) 2 puff IH BID 07/17/14 09/12/18 09/12/18 05:00 History [Symbicort 160-4.5 (Nf)] Ibuprofen [Motrin 800 MG tab] 800 mg PO Q8HR PRN #30 tablet 03/01/17 09/12/18 08/14/18 Rx Cholecalciferol (Vitamin D3) 50,000 units PO QWEEK 05/02/18 09/12/18 09/08/18 09:00 History [Vitamin D3] Empagliflozin [Jardiance] 25 mg PO DAILY 05/02/18 09/12/18 09/11/18 09:00 History Ipratropium/Albuter (Nf) 2 puff IH QID 05/02/18 09/12/18 09/12/18 05:00 History [Combivent Inhaler] Losartan Potassium 50 mg PO DAILY 05/02/18 09/12/18 09/11/18 09:00 History Melatonin/Pyridoxine [Melatonin 5 5 mg PO QHS 05/02/18 09/12/18 09/11/18 22:00 History mg Tablet] Metoprolol Succinate [Toprol Xl] 150 mg PO DAILY 05/02/18 09/12/18 09/12/18 05:00 History Omeprazole 40 mg PO DAILY 05/02/18 09/12/18 09/12/18 05:00 History diphenhydrAMINE [Benadryl CAP] 25 mg PO Q6HR PRN 05/02/18 09/12/18 07/06/18 History glipiZIDE [Glipizide] 5 mg PO BID 05/02/18 09/12/18 08/20/18 History predniSONE [Deltasone] 20 mg PO DAILY PRN 05/02/18 09/12/18 07/03/18 History HYDROcodone/APAP 7.5-325 [Silva 1 tab PO Q4HR PRN 06/07/18 09/12/18 07/18/18 History 7.5-325 mg TAB] Methocarbamol [Robaxin TAB] 1 tab PO Q6HR PRN 06/07/18 09/12/18 08/07/18 History - Brief post op/procedure progress note Date of procedure: 09/12/18 Pre-op diagnosis: malpositioned port Post-op diagnosis: same Procedure: replacement of left internal jugular port a cath Anesthesia: GETA, local Findings: Good placement of port on post op CXR without PTX. Good blood return from port and easily flushed at end of case Surgeon: JAKE WARE Estimated blood loss: minimal Pathology: none Condition: stable - Hospital course Hospital course: Pt discharged from PACU in stable condition - Disposition Condition at discharge: Good Disposition: DC-01 TO HOME OR SELFCARE Short Stay Discharge Plan Activity: no restrictions Diet: regular Wound: open to air Follow up with: LALI OCHOA MD [Primary Care Provider] - 7 Days Forms: Outpatient [facility] Inst.
--- NOTE | 2018-09-13 13:05 | Operative Report ---
PREOPERATIVE DIAGNOSIS: Malpositioned left-sided Port-A-Cath. POSTOPERATIVE DIAGNOSIS: Malpositioned left-sided Port-A-Cath. PROCEDURE PERFORMED: Replacement of left-sided Port-A-Cath. SURGEON: Monique Cary DO ANESTHESIA: General endotracheal anesthesia, local. ESTIMATED BLOOD LOSS: Minimal. PATHOLOGY: None CONDITION: Stable. HISTORY OF PRESENT ILLNESS AND INDICATION: The patient is a 53-year-old female with breast cancer who had a left internal jugular port placed with ultrasound guidance on 08/21/2018. The patient presented for chemotherapy and blood could not be drawn back from the port; however, did flush appropriately. The port was instilled with Cathflo; however, no blood flow was appreciated and therefore could not be used. The patient was sent for a portogram, which showed that the distal tip of the Port-A-Cath was malpositioned now in the superior vena cava pointed upwards. Upon postop chest x-ray from 08/21/2018 did show good position of the port in the right atrium. Due to the malpositioning of the port, it was recommended that the Port-A-Cath be repositioned. This was discussed with the patient, all risks, benefits, and alternatives to surgery were discussed and all questions were answered. Consent was obtained. PROCEDURE IN DETAIL: The patient was identified in preoperative area and taken back to the operating room and placed on the operative table in supine position. After anesthesia was induced, the left arm was tucked and the left upper chest and neck were prepped and draped in the usual sterile fashion. A timeout was performed. Local anesthetic was infiltrated into the skin at the prior incision site in the left upper chest. The dissection was carried down through the skin and subcutaneous tissue with Bovie electrocautery. The pocket was encountered and was bluntly dissected using a hemostat until the port was visualized. The catheter was disassembled from the Port-A-Cath and clamped with a hemostat. Using fluoroscopy intraoperatively, the catheter was pulled back until it was out of the SVC and a Glidewire was placed through the catheter. The Glidewire was directed downward into the right atrium. The old catheter was removed over the wire with wire visualized at all times. A new 8-Maltese PowerPort kit was opened and flushed appropriately. The new catheter was placed over the wire and using fluoroscopic guidance was advanced until it was seen in the right atrium. The wire was then removed. The catheter was then pulled back slowly until the tip was visualized in the right atrium. The original catheter, which was removed was affixed to the port at 25 cm. This catheter was affixed to the port at 30 cm. The old subcutaneous port was removed and the new port flushed and assembled in the usual fashion. The new port was sutured into place using 2-0 Vicryl suture to the prepectoral fascia. The port was tested and there was good blood flow from the Port-A-Cath. The port flushed easily with heparinized saline. The subcutaneous tissue was then irrigated and hemostasis carefully ensured. The Port-A-Cath was instilled with 3000 units of heparin. The Port-A-Cath was then accessed as per the request of the oncologist. A Plaza needle was inserted through the skin and into the subcutaneous port. Upon doing this, we could not get blood flow from the Port-A-Cath. Therefore, the Port-A-Cath was reexamined and re-flushed with heparinized saline. The positioning of the Port-A-Cath was reconfirmed using fluoroscopy. The tip of the port remained in the right atrium. After the port was flushed with heparinized saline, we were able to get blood flow back. Once again, the port was accessed; however, it was difficult to get blood flow back. This is likely due to the patient's body habitus. The patient's head and chest were elevated and another attempt was made obtaining blood from the port. Now there was good blood flow from the Port-A-Cath. The port was once again flushed with heparinized saline. At this point, the port was accessed under direct visualization using a Plaza needle through the skin. This was tested and there was good blood flow from the catheter. The catheter was flushed with heparinized saline and then instilled with 3000 units of heparin. The subcutaneous tissue was once again irrigated and hemostasis assured. The deep dermal layer was closed in interrupted fashion using 3-0 Vicryl sutures. The skin was closed with 4-0 Monocryl subcuticular stitches and skin glue. A Biopatch was placed around the entry site of the Port-A-Cath into the skin. A 2 x 2 gauze was placed over the incision after it was dry and the entire unit covered with a Tegaderm dressing. At the end of the case, the postop chest x-ray did show good positioning of the port. At the end of the case, all sponge, instrument, sharp counts were correct x 2. The patient was awoken from anesthesia, extubated, and taken to PACU in stable condition. JOB# [id number] EUNICE/PRICE
== END 2018-09-12 06:00 | disposition home or self-care (01) ==
LOC: OR 05:59
PROVIDERS: ATTEND Surgery
DX: T82.49XA Other complication of vascular dialysis catheter, initial encounter (principal); J45.909 Unspecified asthma, uncomplicated; G47.30 Sleep apnea, unspecified; K21.9 Gastro-esophageal reflux disease without esophagitis; M19.90 Unspecified osteoarthritis, unspecified site; E11.9 Type 2 diabetes mellitus without complications; E78.00 Pure hypercholesterolemia, unspecified; I10 Essential (primary) hypertension; E66.9 Obesity, unspecified; Z68.42 Body mass index [BMI] 45.0-49.9, adult; Z80.3 Family history of malignant neoplasm of breast; Z85.3 Personal history of malignant neoplasm of breast; Z90.11 Acquired absence of right breast and nipple; Z79.899 Other long term (current) drug therapy; Z88.8 Allergy status to other drugs, medicaments and biological substances; Z98.890 Other specified postprocedural states; Y83.8 Other surgical procedures as the cause of abnormal reaction of the patient, or of later complication, without mention of misadventure at the time of the procedure; Y92.89 Other specified places as the place of occurrence of the external cause
CPT/HCPCS: 36582; 77001; 81025; 82962; C1769; C1788; J0690; J1100; J1644; J2250; J2405; J2704; J3010; J7040; J7120

== ENCOUNTER 2018-11-20 08:19 | Outpatient (CLI) | payer BC ==
--- NOTE | 2018-11-20 09:30 | Mammography Report ---
LEFT DIGITAL SCREENING MAMMOGRAM with CAD: 11/20/18 08:19:00 CLINICAL: Routine screening. Right breast cancer status post right mastectomy and currently receiving chemotherapy. COMPARISON:11/07/17 FINDINGS: The breast is heterogeneously dense, which may obscure small masses. A few scattered benign calcifications.No mass, architectural distortion or suspicious calcifications. IMPRESSION: No mammographic evidence of malignancy. BI-RADS CATEGORY: 2 -- Benign RECOMMENDATION: Routine screening in one year. ACR BI-RADS MAMMOGRAPHIC CODES: 0 = Needs additional imaging evaluation; 1 = Negative; 2 = Benign; 3 = Probably benign; 4 = Suspicious; 5 = Malignant; 6 = Known biopsy-proven malignancy COMMENT: 1. Dense breast tissue, i.e., adenosis, fibrocystic changes, etc., may obscure an underlying neoplasm. 2. Approximately 10% of cancers are not detected with mammography. 3. A negative mammography report should not delay biopsy if a clinically suspicious mass is present. COMMENT: Patient follow-up letters are generated via our [employer] application.
== END 2018-11-20 08:20 | disposition home or self-care (01) ==
LOC: SPVWC 08:19
PROVIDERS: ATTEND Surgery
DX: Z12.31 Encounter for screening mammogram for malignant neoplasm of breast (principal); E78.00 Pure hypercholesterolemia, unspecified; I10 Essential (primary) hypertension; J45.909 Unspecified asthma, uncomplicated; K21.9 Gastro-esophageal reflux disease without esophagitis; E11.9 Type 2 diabetes mellitus without complications

== ENCOUNTER 2019-02-28 07:28 | Day surgery (SDC) | payer BC ==
[~2019-02-28 07:28] MED LIST changes: +ANCEF/STERILE WATER 2 GM/20 ML 2 GM/20 ML SYRINGE IV NR; -LACTATED RINGERS 1,000 ML IV SCH; +NACL 0.9% IR ONE
[2019-02-28] MEDS ORDERED: LACTATED RINGERS 1,000 ML IV SCH (08:00)
[2019-02-28] MEDS ORDERED: DILAUDID IV PRN (08:27)
[2019-02-28] MEDS ORDERED: ZOFRAN IV PRN (08:27)
[2019-02-28] MEDS ORDERED: SUBLIMAZE IV NR (08:27)
--- NOTE | 2019-02-28 08:29 | Anesthesia Day of Surgery ---
Anesthesia Day of Surgery - Day of Surgery Patient Examined: Yes Patient H&P Reviewed: Yes Patient is NPO: Yes Beta Blockers: Yes
--- NOTE | 2019-02-28 08:30 | Anesthesia Consultation ---
Anesthesia Consult and Med Hx Date of service: 02/28/19 - Airway Anesthetic Teeth Evaluation: Good ROM Head & Neck: Adequate Mental/Hyoid Distance: Adequate Mallampati Class: Class II Intubation Access Assessment: Good - Pre-Operative Health Status ASA Pre-Surgery Classification: ASA3 Proposed Anesthetic Plan: General Nerve Block: PEC - Pulmonary Hx Smoking: No Hx Asthma: Yes (no recent inhaler use) Hx Respiratory Symptoms: No Hx Sleep Apnea: Yes - Cardiovascular System Hx Hypertension: Yes (Under regular care of county court judge) - Central Nervous System Hx Neuromuscular Disorder: Yes (restless leg syndrome) Hx Psychiatric Problems: No - Gastrointestinal Hx Gastroesophageal Reflux Disease: Yes (well controlled; asymptomatic today) - Endocrine Hx Non-Insulin Dependent Diabetes: Yes Hx Thyroid Disease: No - Other Systems Hx Cancer: Yes Hx Obesity: Yes - Additional Comments Anesthesia Medical History Comments: PONV
[2019-02-28] MEDS ORDERED: VERSED IV NR (09:00)
[2019-02-28] MEDS ORDERED: NEURONTIN PO NR (09:00)
[2019-02-28] MEDS ORDERED: TRANSDERM-SCOP TD NR (09:00)
[2019-02-28] MEDS ORDERED: MARCAINE-EPI 0.25%-1:200,000 INFILTRATI ONE (09:37)
[2019-02-28] MEDS ORDERED: VERSED ONE (10:20)
[2019-02-28] MEDS ORDERED: DIPRIVAN 10 MG/ML IV ONE (10:23)
[2019-02-28] MEDS ORDERED: SUBLIMAZE ONE ×2 (10:23→10:53)
[2019-02-28] MEDS ORDERED: ZOFRAN ONE (10:25)
[2019-02-28] MEDS ORDERED: DECADRON ONE (10:25)
[2019-02-28] MEDS ORDERED: XYLOCAINE CARDIAC IV ONE (10:26)
[2019-02-28] MEDS ORDERED: XYLOCAINE 1%/ EPI 1:100,000 INFILTRATI ONE ×2 (11:08→11:12)
[2019-02-28] MEDS ORDERED: ANCEF ONE (12:48)
[2019-02-28] MEDS ORDERED: BACITRACIN ONE (12:48)
[2019-02-28] MEDS ORDERED: NACL P/F VIAL (10 ML) 0 ML ONE (12:49)
[2019-02-28] MEDS ORDERED: GENTAMICIN ONE (12:49)
[2019-02-28] MEDS ORDERED: ANCEF IV ONE (12:55)
[2019-02-28] MEDS ORDERED: BACITRACIN IR ONE (12:55)
[2019-02-28] MEDS ORDERED: GENTAMICIN IV ONE (12:55)
[2019-02-28] MEDS ORDERED: NACL 0.9% IR ONE (12:55)
[2019-02-28 15:00] VITALS: BP 134/75
--- NOTE | 2019-03-12 00:03 | Operative Report ---
Operative Report Operative Report: Plastic surgery operative note Preoperative diagnosis Acquired absence of the right breast;History of right breast cancer; Status post Right breast reconstruction with Tissue electrician wiring and flex HD Postoperative Diagnosis: same Procedure: Removal of Right Breast tissue electrician wiring, Excision of Damaged skin, Extensive capsulectomy with excision of seroma capsule and placement of permanent prosthesis. Surgeon: Dr. Tanika King Buttermaker: none Anesthesia: General. EBL: 100cc Indications: This patient is a 54-year-old -[place] female with history of right breast cancer who underwent an immediate right breast reconstruction at the time of her mastectomy. Her postoperative course was complicated by the development of cellulitis as well as a seroma that required an additional trip to the OR for wound closure as well as subsequent drain placement in office. She went on to complete chemotherapy and had arrived at a point where she was optimized and stable for the planned second stage of reconstruction. We planned to remove the tissue electrician wiring and replace it with a permanent silicone prosthesi s and excise the seroma capsule with extensive capsulectomy to reshape the breast, as it had become misshapen and developed skin breakdown where the seroma accumulated. Benefits and risks of this procedure were outlined and discussed at length with the patient and her mother. Informed consent was obtained. Procedure: After review of pertinent history and physical exam findings the patient was brought into the operating room and placed supine on the OR table. After induction of adequate general endotracheal anesthesia, the right breast was prepped and draped in the usual sterile surgical fashion. To begin,1% lidocaine with epinephrine was injected Subcutaneously in the Outlined areas for incision.The skin that had become attenuated due to the presence of the seroma were was excised and the implatn pocket opened up to reveal an intact tissue electrician wiring and viable latissimus dorsi muscle flap inferiorly. Once in the tissue electrician wiring was removed, the pocket was irrigated and we began Capsulectomy with electrocautery Care was taken to avoid over-dissection of the [place] right chest skin flaps to maintain adequate blood supply. As much capsule as could be removed was excised along with all of the remaining seroma capsule. Inferiorly,the inframammary fold was lowered to better match the left breast. We then checked for hemostasis which was achieved with electrocautery. Next we thoroughly irrigated the implant pocket with a triple antibiotic solution. In 19 Armenian Alonzo drain was placed and secured using nylon suture. Once this was finished, we are ready to place our permanent Implant which was a 750 mL smooth round [place] silicone implant. The implant was irrigated with triple antibiotics solution as well, gloves were changed, and it was placed without difficulty into the Implant pocket. We have began a three layered closure using 2-0 Monocryl rFollowed by two layers of Monoderm Quill suture. This was then followed by the application of dermabond, Telfa and a Tegaderm dressing.The patient was then awakened from general anesthesia without difficulty and transferred to the recovery unit in stable condition. There were no complications. Specimens sent included right mastectomy flap skin, capsule and seroma capsule.
== END 2019-02-28 16:10 | disposition home or self-care (01) ==
LOC: OR 07:28
PROVIDERS: ATTEND Plastic Surgery
DX: Z41.1 Encounter for cosmetic surgery (principal); E78.00 Pure hypercholesterolemia, unspecified; I10 Essential (primary) hypertension; J45.909 Unspecified asthma, uncomplicated; E78.5 Hyperlipidemia, unspecified; G47.33 Obstructive sleep apnea (adult) (pediatric); K21.9 Gastro-esophageal reflux disease without esophagitis; E66.9 Obesity, unspecified; M19.90 Unspecified osteoarthritis, unspecified site; E11.9 Type 2 diabetes mellitus without complications; Z80.3 Family history of malignant neoplasm of breast; Z98.890 Other specified postprocedural states; Z90.11 Acquired absence of right breast and nipple; Z90.13 Acquired absence of bilateral breasts and nipples; Z85.3 Personal history of malignant neoplasm of breast; Z88.8 Allergy status to other drugs, medicaments and biological substances; Z79.899 Other long term (current) drug therapy; Z68.41 Body mass index [BMI] 40.0-44.9, adult; Z98.82 Breast implant status
CPT/HCPCS: 19340; 19371; 82962; 88300; 88305; C1789; J0690; J1100; J1580; J2001; J2250; J2405; J2704; J3010; J7120; 88302

== ENCOUNTER 2019-11-27 07:58 | Outpatient (CLI) | payer BC ==
--- NOTE | 2019-11-27 13:11 | Mammography Report ---
DIGITAL DIAGNOSTIC MAMMOGRAM WITH CAD, 11/27/2019 INDICATION: For clip placement immediately after 2 site stereotactic biopsy for calcifications. TECHNIQUE: Digital left mammographic imaging was performed. This examination was interpreted with the benefit of Computer-aided Detection analysis. COMPARISON: 11/20/2019 FINDINGS: Breast Density: The breasts are heterogeneously dense, which may obscure small masses. A biopsy clip is identified at 11:30 to 12:00 and correlates with the first stereotactic biopsy site. A bone-shaped biopsy clip is identified more inferior and at 2:00 and correlates with the second osiel reotactic biopsy site. At least some calcifications have been removed at both sites. IMPRESSION: Successful stereotactic biopsy at 2 sites with concordant clip deployment. Follow up recommendation: No recall. Post biopsy imaging. A "normal" or negative report should not discourage follow up or biopsy of a clinically significant f inding. A written summary of these findings will be mailed to the patient. The patient will be entered into a mammography reporting system which will generate a reminder letter for the patient's next appointmen t at the appropriate interval. According to the [employer], yearly mammograms are recommended starting at age 40 and continuing as long as a woman is in good health. Breast MRI is recommended for women with an brian roximately 20-25% or greater lifetime risk of breast cancer, including women with a strong family his tory of breast or ovarian cancer and women who have been treated for Hodgkin's disease. Signer Name: Simon Williamson MD Signed: 11/27/2019 1:07 PM Workstation Name: [id number]
--- NOTE | 2019-11-27 13:40 | Mammography Report ---
LEFT STEREOTACTIC NEEDLE BREAST BIOPSY CAPS ON AT 2 SITES LEFT BREAST INDICATION: Suspicious left breast calcifications at 2 sites. COMPARISON: 03/21/2020 FINDINGS: The procedure was explained to the patient, all questions answered and informed consent was obtained. A timeout was called and the left breast was marked for biopsy. A group of calcifications at 12:00 approximately 15 cm from the nipple was targeted with stereotactic guidance. The skin was prepped with chloro prep. Using 1% lidocaine for skin anesthesia and 2% lidoc kyara with epinephrine for deep anesthesia, 8 gauge mammotome biopsy was performed. Samples were obtai juju around the clock face. Although targeting appeared to be satisfactory, only one distinct calcific ation was identified in the tissue. A marker was placed at the biopsy site. Hemostasis was achieved w ith minimal effort and a sterile dressing was applied. Attention was then given to a more lateral group of upper left breast calcifications which was target ed with stereotactic guidance. The skin was prepped with chloro prep. Using 1% lidocaine for skin ane sthesia and 2% lidocaine with epinephrine for deep anesthesia, 8 gauge mammotome biopsy was performed . Samples were obtained around the clock face and a fuels sales representative calcifications or calcifications w ere obtained. A marker was placed at the biopsy site. Hemostasis was achieved with minimal effort. A sterile dressing was applied. A post procedure mammogram demonstrated removal of at least some of the calcifications at both sites and concordant clip placement at both sites. The patient left the department in good condition and wa s given instructions for wound care and follow-up. IMPRESSION: 1. Successful uncomplicated stereotactic biopsy at 2 sites left breast.. Signer Name: Simon Williamson MD Signed: 11/27/2019 1:35 PM Workstation Name: [id number]
--- NOTE | 2019-11-27 14:11 | Mammography Report ---
LEFT STEREOTACTIC NEEDLE BREAST BIOPSY AT 2 SITES LEFT BREAST INDICATION: Suspicious left breast calcifications at 2 sites. COMPARISON: 03/21/2020 FINDINGS: The procedure was explained to the patient, all questions answered and informed consent was obtained. A timeout was called and the left breast was marked for biopsy. A group of calcifications at 12:00 approximately 15 cm from the nipple was targeted with stereotactic guidance. The skin was prepped with chloro prep. Using 1% lidocaine for skin anesthesia and 2% lidoc kyara with epinephrine for deep anesthesia, 8 gauge mammotome biopsy was performed. Samples were obtai juju around the clock face. Although targeting appeared to be satisfactory, only one distinct calcific ation was identified in the tissue. A marker was placed at the biopsy site. Hemostasis was achieved w ith minimal effort and a sterile dressing was applied. Attention was then given to a more lateral group of upper left breast calcifications which was target ed with stereotactic guidance. The skin was prepped with chloro prep. Using 1% lidocaine for skin ane sthesia and 2% lidocaine with epinephrine for deep anesthesia, 8 gauge mammotome biopsy was performed . Samples were obtained around the clock face and a sales representative door to door calcifications or calcifications w ere obtained. A marker was placed at the biopsy site. Hemostasis was achieved with minimal effort. A sterile dressing was applied. A post procedure mammogram demonstrated removal of at least some of the calcifications at both sites and concordant clip placement at both sites. The patient left the department in good condition and wa s given instructions for wound care and follow-up. IMPRESSION: 1. Successful uncomplicated stereotactic biopsy at 2 sites left breast.. Signer Name: Simon Williamson MD Signed: 11/27/2019 2:07 PM Workstation Name: [id number]
== END 2019-11-27 07:59 | disposition home or self-care (01) ==
LOC: SPVWC 07:58
PROVIDERS: ATTEND Surgery
DX: R92.1 Mammographic calcification found on diagnostic imaging of breast (principal); E78.00 Pure hypercholesterolemia, unspecified; I10 Essential (primary) hypertension; J45.909 Unspecified asthma, uncomplicated; G47.30 Sleep apnea, unspecified; K21.9 Gastro-esophageal reflux disease without esophagitis; E66.9 Obesity, unspecified; Z90.11 Acquired absence of right breast and nipple; M19.90 Unspecified osteoarthritis, unspecified site; E11.9 Type 2 diabetes mellitus without complications; Z88.8 Allergy status to other drugs, medicaments and biological substances; Z79.899 Other long term (current) drug therapy; Z85.3 Personal history of malignant neoplasm of breast; Z80.3 Family history of malignant neoplasm of breast; Z98.890 Other specified postprocedural states
CPT/HCPCS: 19081; 19082; 77065; A4648; 88305

== ENCOUNTER 2020-10-22 07:41 | Day surgery (SDC) | payer MEDICAID ==
--- NOTE | 2020-10-22 07:18 | Anesthesia Day of Surgery ---
Anesthesia Day of Surgery - Day of Surgery Patient Examined: Yes Patient H&P Reviewed: Yes Patient is NPO: Yes
--- NOTE | 2020-10-22 07:18 | Anesthesia Consultation ---
Anesthesia Consult and Med Hx Date of service: 10/22/20 - Airway Anesthetic Teeth Evaluation: Good ROM Head & Neck: Adequate Mental/Hyoid Distance: Adequate Mallampati Class: Class II Intubation Access Assessment: Good - Pulmonary Exam CTA: Yes - Cardiac Exam Cardiac Exam: RRR - Pre-Operative Health Status ASA Pre-Surgery Classification: ASA2 Proposed Anesthetic Plan: General - Pulmonary Hx Smoking: No Hx Asthma: Yes (Last treated 2017) Hx Respiratory Symptoms: No Hx Sleep Apnea: Yes - Cardiovascular System Hx Hypertension: Yes (Hx of htn but no longer treated) - Central Nervous System Hx Neuromuscular Disorder: Yes (restless leg syndrome) Hx Psychiatric Problems: No - Gastrointestinal Hx Gastroesophageal Reflux Disease: Yes (well controlled; asymptomatic today) - Endocrine Hx Non-Insulin Dependent Diabetes: Yes Hx Thyroid Disease: No - Other Systems Hx Cancer: Yes Hx Obesity: Yes
[~2020-10-22 07:41] MED LIST changes: +ACETAMINOPHEN 500 MG TAB PO SCH; -ANCEF/STERILE WATER 2 GM/20 ML 2 GM/20 ML SYRINGE IV NR; +BUPIVACAINE-EPINEPHRINE/PF 0.5%-1:200,000 (30 ML) VIAL INFILTRATI ONE; +BUPIVACAINE/PF (0.5%) 5 MG/1 ML 30 ML VIAL INFILTRATI ONE; +LACTATED RINGERS 1,000 ML IV SCH; +LIDOCAINE (1%) 10 MG/1 ML VIAL 20 ML MDV ONE; +MIDAZOLAM 2 MG/2 ML INJ IV NR; -NACL 0.9% IR ONE; +SCOPOLAMINE TRANSDERMAL PATCH 72 HR TD NR; +ceFAZolin/Water 2 GM/20 ML 2 GM/20 ML SYRINGE IV NR
[2020-10-22] MEDS ORDERED: LIDOCAINE 1%/EPINEPHRINE 1:100,000 VIAL (20 ML) INFILTRATI ONE ×2 (07:56→08:28)
[2020-10-22] MEDS ORDERED: HYDROmorphone 1 MG/1 ML INJ IV PRN (08:00)
[2020-10-22] MEDS ORDERED: propofoL 200 MG/20 ML VIAL IV ONE (08:27)
[2020-10-22] MEDS ORDERED: SODIUM CHLORIDE 0.9% IRR 1,500 ML BOTTLE IR ONE (08:28)
[2020-10-22] MEDS ORDERED: fentaNYL 250 MCG/5 ML INJ ONE (08:36)
[2020-10-22] MEDS ORDERED: ONDANSETRON 4 MG/2 ML INJ ONE (08:38)
[2020-10-22] MEDS ORDERED: ROCURONIUM 50 MG/5 ML INJ IV ONE (08:38)
[2020-10-22] MEDS ORDERED: LIDOCAINE MPF (2%) 20 MG/1 ML VIAL 5 ML ONE (08:38)
[2020-10-22] MEDS ORDERED: SUCCINYLCHOLINE CHLORIDE 200 MG/10 ML INJ MDV ONE (08:38)
[2020-10-22] MEDS ORDERED: dexAMETHasone 20 MG/5 ML VIAL ONE (09:00)
[2020-10-22] MEDS ORDERED: ONDANSETRON 4 MG/2 ML INJ IV PRN ×2 (09:00→12:03)
[2020-10-22] MEDS ORDERED: GLYCOPYRROLATE 0.4 MG/2 ML INJ ONE ×2 (09:00→09:13)
[2020-10-22] MEDS ORDERED: NEOSTIGMINE 10MG/10 ML INJ MDV ONE (09:13)
[2020-10-22] MEDS ORDERED: ePHEDrine SULFATE 50 MG/1 ML INJ ONE (09:47)
[2020-10-22] MEDS ORDERED: KETOROLAC 30 MG/1 ML INJ ONE (10:30)
--- NOTE | 2020-10-22 12:02 | Operative Report ---
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 Postoperative Diagnosis: same Procedure: Removal of Right Breast implant, Excision of Excess skin and revision of axillary mastectomy scars, Extensive capsulectomy; Latissimus Dorsi flap thinning with flap rotation and advancement and closure. Surgeon: Dr. Tanika King Program And Research Coordinator: none Anesthesia: General. Specimens: Explanted silicone breast implant (damaged during removal), Right breast implant capsule EBL: 100cc Indications: This patient is a 55-year-old -[place] female with history of right breast cancer who underwent an immediate right breast reconstruction at the time of her mastectomy. Her postoperative course was complicated by the development of cellulitis as well as a seroma that required an additional trip to the OR for wound closure as well as subsequent drain placement in office. She went on to complete chemotherapy and had arrived at a point where she was optimized and stable for the planned second stage of reconstruction. This was completed and she was then treated with radiation therapy. As a result of this radiation treatment, she experienced capsular contracture which trapped her implant very high on her chest, creating a deformity and separation between the implant and the flap tissue, which remained viable. The deformity also contributed to a worsening of a right axillary mastectomy scar tissue overhang, which aggravated the patient's hidradenitis and history of sebaceous cyst. Therefore the decision was made to perform a complete explant with capsulectomy and advancement of the latissimus dorsi myocutaneous flap as well as revision of the mastectomy scar to leave the patient with as flat and linear of closure as possible. Once healed, she will choose to use a prosthesis. The benefits and risks of this procedure were outlined and discussed at length with the patient and her mother. Informed consent was obtained. Procedure: After review of pertinent history and physical exam findings the patient was brought into the operating room and placed supine on the OR table. After induction of adequate general endotracheal anesthesia, the right breast was prepped and draped in the usual sterile surgical fashion. To begin,1% lidocaine with epinephrine was injected subcutaneously in the outlined areas for incision.we began with removal of the implant which was performed through an anterior chest incision that included the excision of excess ambler skin of the right chest. The implant capsule was easily accessed and the implant removed. In the process a small hole was made in the implant shell. It was sent off for gross examination using curettes and electrocautery, the posterior capsule was removed completely the inferior and lateral capsular goldman were also excised due to the thinness of the anterior capsule, very limited capsulectomy was performed in this area for fear of devascularizing the skin completely. Electrocautery was used to achieve hemostasis. The the excess skin in the right axilla that had become bothersome due to its hanging in the axillary region as an extension of the mastectomy was sharply excised and a wedge of subcutaneous fat was also removed 2 of allow a linear and aesthetically pleasing approximation of the skin edges. This excision was connected to the lateral aspect of the latissimus dorsi myocutaneous flap. Taking care not to divide its muscular pedicle, the flap was dissected more freely from surrounding tissue and scar that it had healed into. Light score was performed on the underside of the flap to improve mobilization. Due to the thickness of the flap there was significant step-off deformity with the flap and its existing level of thickness. So the decision was made to defat the flap to improve its contour along the anterior chest wall. On the cutaneous paddle, as a part of the advancement of the flap toward the anterior medial chest, the entire cutaneous pedicle was de-epithelialized to allow burying of the flap and coverage with ambler chest skin to create an aesthetically pleasing inferior slope from the top of the chest wall toward the bottom of the breast mound. To achieve this contour, buried 2-0 Monocryl [id number] sutures were used to affix the latissimus dorsi flap to the anterior chest wall/remnant of the pectoralis fashion. The entire subcutaneous area was thoroughly irrigated and we then checked for hemostasis which was achieved with electrocautery. A 19 [place] Alonzo drain was placed and secured using nylon suture. We then began a three layered closure using 2-0 Monocryl followed by two layers of Monoderm Quill suture. This was then followed by the application of dermabond, ABD pads and a bra binder. The patient was then awakened from general anesthesia without difficulty and transferred to the recovery unit in stable condition. There were no complications. Specimens sent included right mastectomy flap skin, capsule and implant.
[2020-10-22] MEDS ORDERED: HYDROcodone/ACETAMINOPHEN 7.5-325MG TAB PO PRN (12:03)
[2020-10-22] MEDS ORDERED: LACTATED RINGERS 1,000 ML IV SCH (12:15)
[2020-10-22 12:51] VITALS: BP 121/59
== END 2020-10-22 13:15 | disposition home or self-care (01) ==
LOC: OR 07:41
PROVIDERS: ATTEND Plastic Surgery
DX: Z45.811 Encounter for adjustment or removal of right breast implant (principal); Z20.822 Contact with and (suspected) exposure to COVID-19; E78.00 Pure hypercholesterolemia, unspecified; I10 Essential (primary) hypertension; J45.909 Unspecified asthma, uncomplicated; G47.30 Sleep apnea, unspecified; K21.9 Gastro-esophageal reflux disease without esophagitis; E11.9 Type 2 diabetes mellitus without complications; Z90.11 Acquired absence of right breast and nipple; Z80.3 Family history of malignant neoplasm of breast; Z88.8 Allergy status to other drugs, medicaments and biological substances; Z79.899 Other long term (current) drug therapy; Z85.3 Personal history of malignant neoplasm of breast; Z98.890 Other specified postprocedural states
CPT/HCPCS: 19361; 19371; 82962; 88300; 88305; J0330; J0690; J1100; J1885; J2250; J2405; J2704; J2710; J3010; J7120; U0003; 88302; 88304

== ENCOUNTER 2020-11-12 09:15 | Outpatient (CLI) | payer MEDICAID ==
--- NOTE | 2020-11-13 14:36 | Mammography Report ---
DIGITAL SCREENING MAMMOGRAM WITH CAD, 11/13/2020 INDICATION: Routine screening mammography. TECHNIQUE: Digital left 2D mammography was obtained in the craniocaudal and mediolateral oblique pro jections. This examination was interpreted with the benefit of Computer-Aided Detection analysis. COMPARISON: 11/14/2019, 05/14/2020 FINDINGS: Breast Density: The breasts are heterogeneously dense, which may obscure small masses. There is no evidence of dominant mass, suspicious calcifications or architectural distortion in the l eft breast. There are 2 biopsy clips in the left breast from previous biopsies performed in October 0. No significant interval change compared with the most recent mammogram of 05/14/2020. IMPRESSION: No mammographic evidence of malignancy. BI-RADS Category 2: Benign. No mammographic evidence of malignancy. Recommend routine screening ma mmography in one year. A "normal" or negative report should not discourage follow up or biopsy of a clinically significant f inding. A written summary of these findings will be mailed to the patient. The patient will be entered into a mammography reporting system which will generate a reminder letter for the patient's next appointmen t at the appropriate interval. The [employer] recommends yearly mammograms starting at age 40 and continuing as l macario as a woman is in good health. Breast MRI is recommended for women with an approximate 20-25% or greater lifetime risk of breast cancer, including women with a strong family history of breast or ova bharati cancer or who have been treated for Hodgkin's disease. Signer Name: Jacqui Escobedo MD Signed: 11/13/2020 2:31 PM Workstation Name: [email or web address]
== END 2020-11-12 09:16 | disposition home or self-care (01) ==
LOC: SPVWC 09:15
PROVIDERS: ATTEND Surgery
DX: Z12.31 Encounter for screening mammogram for malignant neoplasm of breast (principal); N64.89 Other specified disorders of breast